=== PATIENT | male | born 1955 ===

== ENCOUNTER 2018-12-29 11:01 | Emergency (ER) | payer MEDICARE ==
[2018-12-29 11:15] VITALS: RESP 18
--- NOTE | 2018-12-29 11:33 | ED PDOC ---
Lower Extremity Pain/Injury Time Seen by Provider: 12/29/18 11:19 Chief Complaint (Nursing): Lower Extremity Problem/Injury Chief Complaint (Provider): Lower Extremity Problem/Injury History Per: Patient History/Exam Limitations: no limitations Onset/Duration Of Symptoms: Days (x10 days ) Current Symptoms Are (Timing): Better Additional Complaint(s): Tavo Gilmore is a 63 year old male a past medical history of HTN, who presents to the emergency department complaining of paint to his right foot at the first metatarsal phalangeal joint, onset x10 days. Patient states that symptoms were initially very severe but have improved now. He further states that a couple of nights ago it was red and inflamed with pain radiating up his leg to his knee. Patient currently takes aspirin and amlodipine. He states he used to drink socially but has not drank for months. Patient admits to eating a lot of shellfish. Patient denies fever, chills, nausea or vomiting. PMD: Dr. Pires Past Medical History Reviewed: Historical Data, Nursing Documentation, Vital Signs Vital Signs: Last Vital Signs Temp 97.5 F L 12/29/18 11:15 Pulse 72 12/29/18 11:15 Resp 18 12/29/18 11:15 BP 144/73 12/29/18 11:15 Pulse Ox 98 12/29/18 11:15 - Medical History PMH: HTN Denies: Chronic Kidney Disease - Family History Family History: States: No Known Family Hx - Home Medications Home Medications: Ambulatory Orders Medication Instructions Recorded Famotidine [Pepcid] 20 mg PO BID #28 tab 12/29/18 Indomethacin [Indocin] 50 mg PO TID PRN #21 cap 12/29/18 predniSONE [predniSONE Tab] 40 mg PO DAILY #8 tab 12/29/18 - Allergies Allergies/Adverse Reactions: Allergies Allergy/AdvReac Type Severity Reaction Status Date / Time No Known Allergies Allergy Verified 12/29/18 11:28 Review of Systems ROS Statement: Except As Marked, All Systems Reviewed And Found Negative Constitutional: Negative for: Fever, Chills Gastrointestinal: Negative for: Nausea, Vomiting Musculoskeletal: Positive for: Foot Pain (right ) Physical Exam - Reviewed Nursing Documentation Reviewed: Yes Vital Signs Reviewed: Yes - Physical Exam Appears: Positive for: Non-toxic, No Acute Distress Head Exam: Positive for: ATRAUMATIC, NORMOCEPHALIC Cardiovascular/Chest: Positive for: Regular Rate, Rhythm. Negative for: Murmur Respiratory: Positive for: Normal Breath Sounds. Negative for: Respiratory Distress Gastrointestinal/Abdominal: Positive for: Normal Exam, Soft. Negative for: Tenderness Extremity: Positive for: Other (Right lower extremity: varicose veins; no palpable tenderness except in the area of the first metatrasal phalangeal joint) - Laboratory Results Result Diagrams: 12/29/18 11:48 12/29/18 11:48 - ECG O2 Sat by Pulse Oximetry: 98 (RA) Pulse Ox Interpretation: Normal - Progress Re-evaluation Time: 12:30 Condition: Improving,but remains with symptoms Medical Decision Making Medical Decision Making: Time: 1139 Impression: gouty attack Plan: --BMP --Uric acid --CBC with differential --Erythrocyte Sedimentation rate --Pepcid 20 mg PO --Prednisone tab 40 mg PO --Indocin 50 mg PO Scribe Attestation: Documented by Robert Mar, acting as a scribe for Masha Islas MD. Provider Scribe Attestation: All medical record entries made by the Scribe were at my direction and personally dictated by me. I have reviewed the chart and agree that the record accurately reflects my personal performance of the history, physical exam, medical decision making, and the department course for this patient. I have also personally directed, reviewed, and agree with the discharge instructions and disposition. Disposition - Clinical Impression Clinical Impression: Acute gout - Patient ED Disposition Is Patient to be Admitted: No Doctor Will See Patient In The: Office Counseled Patient/Family Regarding: Diagnosis, Need For Followup, Rx Given - Disposition Referrals: [facility] [Outside] Disposition: Routine/Home Disposition Time: 13:00 Condition: STABLE Prescriptions: Famotidine [Pepcid] 20 mg PO BID #28 tab Indomethacin [Indocin] 50 mg PO TID PRN #21 cap PRN Reason: Pain, Moderate (4-7) predniSONE [predniSONE Tab] 40 mg PO DAILY #8 tab Instructions: Lifestyle Changes to Manage Gout Forms: [employer] ([place]) Print Language: DESHAWN SRINIVASAN Present On Arrival: None
[2018-12-29 11:53] LABS: BASO % 0.7 % (0.0-2.0); EOS % 0.7 % (0.0-4.0); HEMOGLOBIN 13.5 g/dL (12.0-18.0); LYMPH # 1.6 K/uL (1.0-4.3); MEAN CELL VOLUME 86.4 fl (80.0-94.0); MEAN CORPUSCULAR HEMOGLOBIN 28.8 pg (27.0-31.0); MEAN CORPUSCULAR HGB CONC 33.3 g/dL (33.0-37.0); MONO # 0.4 K/uL (0.0-0.8); MONO % 6.3 % (0.0-10.0); NEUT # 3.8 K/uL (1.8-7.0); NEUT % 65.3 % (50.0-75.0); RBC 4.7 Mil/uL (4.40-5.90); RED CELL DISTRIBUTION WIDTH 13.1 % (11.5-14.5); WHITE BLOOD COUNT 5.8 K/uL (4.8-10.8)
[2018-12-29 12:14] LABS: BLOOD UREA NITROGEN 15 mg/dl (9-20); CALCIUM 9.9 mg/dL (8.4-10.2); GFR NON-AFRICAN AMERICAN > 60; URIC ACID 7.6 mg/Dl (3.5-8.5)
[2018-12-29 13:16] VITALS: BP 141/76; PULSE 81; TEMP 98; O2SAT 99
== END 2018-12-29 13:13 | disposition home or self-care (01) ==
LOC: H.ER 11:01
DX: M10.9 Gout, unspecified (principal); I10 Essential (primary) hypertension